=== PATIENT | male | born 1950 | race Hispanic/Latino ===

== ENCOUNTER 2018-09-05 09:17 | Emergency (ER) | payer MEDICARE, OTHER ==
[~2018-09-05] VITALS: Ht 170.2 cm; Wt 102.1 kg
--- OUTSIDE RECORDS SUMMARY | 2018-09-05 09:19 | XMS REPORT ---
[facility] Address Unknown Phone Unavailable Care Team Providers Care Help Desk Operator Name Role Phone Unavailable Unavailable Problems This patient has no known problems. Allergies, Adverse Reactions, Alerts This patient has no known allergies or adverse reactions. Medications This patient has no known medications. Encounters Start Date/Time End Date/Time Encounter Type Admission Type Attending [facility] Facility Care Department Encounter ID 2018-01-18 00:00:00 2018-01-18 00:00:00 Outpatient [facility] [id number] 2017-07-14 00:00:00 2017-07-14 00:00:00 Outpatient [facility] [id number] 2017-06-27 00:00:00 2017-06-27 00:00:00 Outpatient [facility] [id number] 2017-06-27 00:00:00 2017-06-27 00:00:00 Outpatient [facility] [id number] 2017-05-30 11:19:11 2017-05-30 11:19:11 Outpatient [facility] [id number] 2017-05-30 09:35:29 2017-05-30 09:35:29 Outpatient [facility] [id number]
[2018-09-05] MEDS ORDERED: KETOROLAC TROMETHAMINE 60 MG/2 ML VIAL IM ONE (09:30)
[2018-09-05] MEDS ORDERED: METAXALONE 800 MG TAB PO ONE (09:30)
[2018-09-05] MEDS ORDERED: DEXAMETHASONE SOD PHOS 10 MG/1 ML VIAL IM ONE (09:30)
[2018-09-05] MEDS ORDERED: KETOROLAC TROMETHAMINE 30 MG/ML VIAL ONE (09:33)
--- NOTE | 2018-09-05 09:34 | NUR ---
called pharmacy for skelaxon order.
--- NOTE | 2018-09-05 09:49 | NUR ---
called pharmacy 2nd time for medication
[2018-09-05] MEDS ORDERED: METAXALONE 800 MG TAB PO NR (10:00)
== END 2018-09-05 10:15 | disposition home or self-care (01) ==
LOC: ER 09:17
DX: M47.812 Spondylosis without myelopathy or radiculopathy, cervical region (principal)
CPT/HCPCS: 99283; J1100; J1885